=== PATIENT | female | born 1945 | race African-American/Black ===

== ENCOUNTER 2017-03-01 09:20 | Inpatient (IN) | payer MEDICARE, MEDICAID ==
[~2017-03-01] VITALS: Ht 157.5 cm; Wt 126.7 kg
[2017-03-01] MEDS ORDERED: DIPH25TA23 (09:28)
[2017-03-01] MEDS ORDERED: [UNRECOGNIZED DRUG - CODE] (09:28)
[2017-03-01 10:11] LABS: BASOPHILS % 0.6 % (0.0-2.0); EOSINOPHILS % 0.7 % (0.0-5.0); HEMATOCRIT. 31.7 % (36.0-48.0); HEMOGLOBIN. 11.1 g/dL (12.0-16.0); LYMPHOCYTES % 14.6 % (20.0-50.0); MEAN CORPUSCULAR HEMOGLOBIN 35.6 pg (28.0-32.0); MEAN CORPUSCULAR VOLUME 101.5 fL (81.0-99.0); MEAN PLATELET VOLUME 9.2 fl (7.4-10.4); NEUTROPHILS % 75.1 % (40.0-76.0); PLATELET 314 x1000/uL (130-400); RED BLOOD CELL COUNT 3.12 mill/uL (4.2-5.4)
[2017-03-01 10:18] LABS: INR 1.2
[2017-03-01 10:24] LABS: CARBON DIOXIDE 29 mEq/L (21-32); CHLORIDE 95 mEq/L (98-107)
[2017-03-01 10:32] LABS: TROPONIN I 0.66 ng/mL (0.00-0.04)
[2017-03-01] MEDS ORDERED: ASPIRIN 81MG TABLET PO ONE (11:00)
[2017-03-01] MEDS ORDERED: METOPROLOL TARTRATE 5MG/5ML VIAL IV ONE ×2 (11:00→12:30)
[2017-03-01 14:12] VITALS: BP 99/61
[2017-03-01 14:17] VITALS: BP 99/61
[2017-03-01] MEDS ORDERED: ONDANSETRON 4MG ODT PO PRN (15:00)
[2017-03-01] MEDS ORDERED: MAGNESIUM HYDROXIDE 400MG/5ML 30ML UDC PO PRN (15:00)
[2017-03-01] MEDS ORDERED: DIPHENHYDRAMINE 25MG CAPSULE PO PRN (15:00)
[2017-03-01] MEDS ORDERED: ACETAMINOPHEN 325MG TABLET PO PRN (15:00)
[2017-03-01] MEDS ORDERED: ZOLPIDEM TARTRATE 5MG TABLET PO PRN (15:00)
[2017-03-01] MEDS ORDERED: LETR2.5T6 PO (15:13)
[2017-03-01] MEDS ORDERED: OMEP20CA10 PO (15:13)
[2017-03-01] MEDS ORDERED: POTA10CA42 PO (15:13)
[2017-03-01] MEDS ORDERED: DOCU-150 PO (15:13)
[2017-03-01] MEDS ORDERED: BENA20TA3 PO (15:13)
[2017-03-01] MEDS ORDERED: DIAZ10TA4 PO (15:13)
[2017-03-01] MEDS ORDERED: ATOR20TA PO (15:13)
[2017-03-01] MEDS ORDERED: FURO-151 PO (15:13)
[2017-03-01 16:00] VITALS: BP 108/70
[2017-03-01 16:04] LABS: CREATINE KINASE MB FRACTION 2.5 ng/mL (0.5-3.6)
[2017-03-01 16:06] LABS: TROPONIN I 0.6 ng/mL (0.00-0.04)
[2017-03-01 18:00] VITALS: BP 133/91
[2017-03-01] MEDS: ONDANSETRON HCL 4MG/2ML VIAL IV PRN ×2 (18:08→23:20)
[2017-03-01 20:00] VITALS: BP 124/67
[2017-03-01] MEDS: ATORVASTATIN CALCIUM 20MG TABLET PO SCH (21:35)
[2017-03-01] MEDS: METOPROLOL TARTRATE 25MG TABLET PO SCH (21:35)
[2017-03-01] MEDS: ZOLPIDEM TARTRATE 5MG TABLET PO PRN (21:36)
[2017-03-01 22:00] VITALS: BP 116/60
[2017-03-02] VITALS (13 sets, daily range): BP systolic 92–144; BP diastolic 47–94
[2017-03-02 00:46] LABS: TROPONIN I 0.38 ng/mL (0.00-0.04)
[2017-03-02] MEDS: OMEPRAZOLE 20MG CAPSULE EXTENDED RELEASE PO SCH (06:10)
[2017-03-02] MEDS: ONDANSETRON HCL 4MG/2ML VIAL IV PRN (06:23)
[2017-03-02 06:36] LABS: CARBON DIOXIDE 33 mEq/L (21-32); CHLORIDE 93 mEq/L (98-107)
[2017-03-02 06:39] LABS: HDL CHOLESTEROL 33 mg/dL (40-59); LDL CHOLESTEROL 181 mg/dL (5-100)
[2017-03-02 07:14] LABS: BASOPHILS % 0.4 % (0.0-2.0); EOSINOPHILS % 0.1 % (0.0-5.0); HEMATOCRIT 32.6 % (36.0-48.0); HEMATOCRIT. 32.6 % (36.0-48.0); HEMOGLOBIN 11.2 g/dL (12.0-16.0); HEMOGLOBIN. 11.2 g/dL (12.0-16.0); LYMPHOCYTES % 13.3 % (20.0-50.0); MEAN CORPUSCULAR HEMOGLOBIN 35.1 pg (28.0-32.0); MEAN CORPUSCULAR VOLUME 102.6 fL (81.0-99.0); MEAN PLATELET VOLUME 8.8 fl (7.4-10.4); MONOCYTES % 8.3 % (2.0-8.0); NEUTROPHILS % 77.9 % (40.0-76.0); PLATELET 269 x1000/uL (130-400); RED BLOOD CELL COUNT 3.18 mill/uL (4.2-5.4); RED CELL DISTRIBUTION WIDTH 13.3 % (11.6-14.6)
[2017-03-02] MEDS ORDERED: LISINOPRIL 40MG TABLET PO SCH (09:00)
[2017-03-02] MEDS ORDERED: FUROSEMIDE 40MG TABLET PO SCH (09:00)
[2017-03-02] MEDS ORDERED: POTASSIUM CHLORIDE 20MEQ/PACKET PO SCH (09:30)
[2017-03-02] MEDS: ASPIRIN 81MG TABLET PO SCH (09:48)
[2017-03-02] MEDS: LETROZOLE 2.5MG TABLET PO SCH (09:49)
[2017-03-02] MEDS: METOPROLOL TARTRATE 25MG TABLET PO SCH ×2 (09:50→20:39)
[2017-03-02] MEDS ORDERED: MAGNESIUM 4 G PREMIX 100 ML IV SCH (11:00)
[2017-03-02] MEDS: METOCLOPRAMIDE HCL 10MG/2ML VIAL IV SCH (18:44)
[2017-03-02] MEDS: SODIUM CHLORIDE 0.9% 1,000 ML IV SCH (18:46)
[2017-03-02] MEDS ORDERED: THROAT LOZENGES-BENZOCAINE/MENTH/CETYLPYRD CL LOZENGES MM PRN (20:00)
[2017-03-02] MEDS: ATORVASTATIN CALCIUM 20MG TABLET PO SCH (20:37)
[2017-03-02] MEDS: ZOLPIDEM TARTRATE 5MG TABLET PO PRN (20:38)
[2017-03-03] VITALS (10 sets, daily range): BP systolic 97–122; BP diastolic 54–76
[2017-03-03] MEDS: METOCLOPRAMIDE HCL 10MG/2ML VIAL IV SCH ×4 (00:39→18:43)
[2017-03-03] MEDS: SODIUM CHLORIDE 0.9% 1,000 ML IV SCH ×2 (05:48→20:32)
[2017-03-03] MEDS: OMEPRAZOLE 20MG CAPSULE EXTENDED RELEASE PO SCH ×2 (05:59→09:25)
[2017-03-03 07:10] LABS: BASOPHILS % 0.3 % (0.0-2.0); EOSINOPHILS % 0.4 % (0.0-5.0); HEMATOCRIT. 29.5 % (36.0-48.0); HEMOGLOBIN. 10.2 g/dL (12.0-16.0); LYMPHOCYTES % 15.1 % (20.0-50.0); MEAN CORPUSCULAR HEMOGLOBIN 35.7 pg (28.0-32.0); MEAN CORPUSCULAR VOLUME 103.1 fL (81.0-99.0); MEAN PLATELET VOLUME 8.6 fl (7.4-10.4); MONOCYTES % 8.7 % (2.0-8.0); NEUTROPHILS % 75.5 % (40.0-76.0); PLATELET 270 x1000/uL (130-400); RED BLOOD CELL COUNT 2.86 mill/uL (4.2-5.4); RED CELL DISTRIBUTION WIDTH 13.1 % (11.6-14.6)
[2017-03-03 07:16] LABS: CHLORIDE 96 mEq/L (98-107)
[2017-03-03 07:26] LABS: CARBON DIOXIDE 28 mEq/L (21-32)
[2017-03-03] MEDS ORDERED: POTASSIUM CHLORIDE 20MEQ TABLET SR PO SCH (08:45)
[2017-03-03] MEDS: ASPIRIN 81MG TABLET PO SCH (09:24)
[2017-03-03] MEDS: METOPROLOL TARTRATE 25MG TABLET PO SCH ×2 (09:24→20:54)
[2017-03-03] MEDS: LETROZOLE 2.5MG TABLET PO SCH (09:25)
[2017-03-03] MEDS ORDERED: IODIXANOL 320MG/ML 100 ML BOTTLE IV ONE (11:40)
[2017-03-03] MEDS ORDERED: LIDOCAINE HCL 1% 20ML VIAL (Pyxis) INJ ONE (11:41)
[2017-03-03] MEDS ORDERED: DIPHENHYDRAMINE 50MG/ML VIAL ONE (12:06)
[2017-03-03] MEDS ORDERED: FAMOTIDINE 20MG/2ML VIAL IV ONE (12:07)
[2017-03-03] MEDS ORDERED: HYDROCORTISONE SOD SUCCINATE 250 MG/2 ML VIAL ONE (12:07)
[2017-03-03] MEDS ORDERED: MIDAZOLAM HCL 2 MG/2 ML VIAL ONE (12:18)
[2017-03-03] MEDS ORDERED: FENTANYL CITRATE/PF 50MCG/ML 2ML VIAL ONE (12:19)
[2017-03-03] MEDS ORDERED: ASPIRIN/SOD BICARB/CITRIC ACID 324MG TAB EFF ONE (12:20)
[2017-03-03] MEDS ORDERED: HEPARIN SODIUM 1,000 UNIT/1ML VIAL IV ONE (12:40)
[2017-03-03] MEDS ORDERED: ONDANSETRON HCL 4MG/2ML VIAL IV PRN (13:15)
[2017-03-03] MEDS ORDERED: ATROPINE SULFATE 1MG/10ML SYR IV PRN (13:15)
[2017-03-03] MEDS ORDERED: SODIUM CHLORIDE 0.45% 600 ML IV ONE (13:15)
[2017-03-03] MEDS ORDERED: ACETAMINOPHEN 325MG TABLET PO PRN (13:15)
[2017-03-03] MEDS ORDERED: MORPHINE SULFATE 2 MG/ML CPJ (NOT FOR IM USE) IV PRN (13:15)
[2017-03-03] MEDS: ZOLPIDEM TARTRATE 5MG TABLET PO PRN (20:53)
[2017-03-03] MEDS: ATORVASTATIN CALCIUM 20MG TABLET PO SCH (20:53)
[2017-03-04] VITALS (8 sets, daily range): BP systolic 92–132; BP diastolic 49–69
[2017-03-04] MEDS: METOCLOPRAMIDE HCL 10MG/2ML VIAL IV SCH ×2 (00:02→06:03)
[2017-03-04] MEDS ORDERED: FAMOTIDINE 20MG TABLET PO SCH (06:50)
[2017-03-04 07:20] LABS: CARBON DIOXIDE 28 mEq/L (21-32); CHLORIDE 99 mEq/L (98-107)
[2017-03-04 07:47] LABS: BASOPHILS % 0.2 % (0.0-2.0); HEMATOCRIT. 25.7 % (36.0-48.0); HEMOGLOBIN. 8.9 g/dL (12.0-16.0); LYMPHOCYTES % 14.7 % (20.0-50.0); MEAN CORPUSCULAR HEMOGLOBIN 35.7 pg (28.0-32.0); MEAN CORPUSCULAR VOLUME 103.6 fL (81.0-99.0); MEAN PLATELET VOLUME 8.6 fl (7.4-10.4); MONOCYTES % 7.4 % (2.0-8.0); NEUTROPHILS % 77.7 % (40.0-76.0); PLATELET 240 x1000/uL (130-400); RED BLOOD CELL COUNT 2.48 mill/uL (4.2-5.4); RED CELL DISTRIBUTION WIDTH 13.1 % (11.6-14.6)
[2017-03-04] MEDS: METOPROLOL TARTRATE 25MG TABLET PO SCH (08:14)
[2017-03-04] MEDS: ASPIRIN 81MG TABLET PO SCH (08:14)
[2017-03-04] MEDS: LETROZOLE 2.5MG TABLET PO SCH (08:15)
[2017-03-04] MEDS ORDERED: LISINOPRIL 5MG TABLET PO SCH (09:00)
[2017-03-04 11:48] LABS: HEMATOCRIT 29.1 % (36.0-48.0); HEMOGLOBIN 9.9 g/dL (12.0-16.0)
== END 2017-03-04 13:50 | disposition home or self-care (01) | DRG 280 ==
LOC: ER 09:20 → 3WST 11:23 → ENRESERV 12:48
PROVIDERS: ADMIT Family Medicine; ATTEND Family Medicine
PROC: 4A023N7 Measurement of Cardiac Sampling and Pressure, Left Heart, Percutaneous Approach (ICD-10-PCS; principal; 2017-03-03)
PROC: B2111ZZ Fluoroscopy of Multiple Coronary Arteries using Low Osmolar Contrast (ICD-10-PCS; 2017-03-03)
PROC: B2151ZZ Fluoroscopy of Left Heart using Low Osmolar Contrast (ICD-10-PCS; 2017-03-03)
DX: I21.4 Non-ST elevation (NSTEMI) myocardial infarction (principal); E43 Unspecified severe protein-calorie malnutrition; E87.1 Hypo-osmolality and hyponatremia; I11.0 Hypertensive heart disease with heart failure; I50.9 Heart failure, unspecified; Z68.43 Body mass index [BMI] 50.0-59.9, adult; E87.5 Hyperkalemia; D64.9 Anemia, unspecified; I25.2 Old myocardial infarction; E78.00 Pure hypercholesterolemia, unspecified; E78.5 Hyperlipidemia, unspecified; K21.9 Gastro-esophageal reflux disease without esophagitis; Z82.49 Family history of ischemic heart disease and other diseases of the circulatory system; Z85.3 Personal history of malignant neoplasm of breast; Z87.891 Personal history of nicotine dependence; Z90.12 Acquired absence of left breast and nipple; Z92.21 Personal history of antineoplastic chemotherapy; E66.09 Other obesity due to excess calories; F29 Unspecified psychosis not due to a substance or known physiological condition; F41.9 Anxiety disorder, unspecified; Z88.8 Allergy status to other drugs, medicaments and biological substances; Z79.899 Other long term (current) drug therapy; I25.10 Atherosclerotic heart disease of native coronary artery without angina pectoris
CPT/HCPCS: 36415; 71010; 74000; 76700; 78582; 80048; 80053; 80061; 82550; 82553; 83036; 83735; 83880; 84132; 84484; 85014; 85018; 85025; 85027; 85379; 85610; 93005; 93306; 93458; 93970; 96374; 96376; 99285; A9558; C1769; C1887; C1893; J1200; J1644; J1720; J2250; J2405; J2765; J3010; J3475; J3490; J7030; J7050; Q9967